=== PATIENT | male | born 1960 | race Caucasian/White ===

== ENCOUNTER 2021-02-14 21:20 | Emergency (ER) | payer OTHER ==
[2021-02-14 22:06] LABS: Basophils % 0.6 % (0-1.3); Hematocrit 43.7 % (39.6-49.0); Lymphocytes % 9.4 % (15.3-44.8); MPV 8.5 fL (7.6-11.3); RBC Red Blood Cell Count 4.58 M/uL (4.33-5.43)
[2021-02-14] MEDS ORDERED: METHYLPREDNISOLONE 125 MG INJ ONE (22:07)
[2021-02-14 22:08] LABS: Protime INR 1.04
--- NOTE | 2021-02-14 22:08 | RAD REPORT ---
EXAM DESCRIPTION: RAD - Chest Single View - 02/14/2021 9:57 pm CLINICAL HISTORY: SOB COMPARISON: <Comparisons> FINDINGS: Lines: None. Lungs: No evidence of edema or pneumonia. Pleural: No significant pleural effusions or pneumothorax. Cardiac: The heart size is within normal limits. Bones: No acute fractures. Other: IMPRESSION: No acute cardiopulmonary disease.
[2021-02-14 22:24] LABS: ALT/SGPT 32 U/L (12-78); AST/SGOT 33 U/L (15-37); Albumin 4.3 g/dL (3.4-5.0); Alkaline Phosphatase 67 U/L (45-117); BUN Blood Urea Nitrogen 18 mg/dL (7-18); Bicarbonate 26 mmol/L (21-32); Bilirubin Direct < 0.1 mg/dL (0-0.2); Bilirubin Total 0.4 mg/dL (0.2-1.0); Glucose Level 101 mg/dL (74-106); Magnesium 2.2 mg/dL (1.8-2.4); NT PRO-BNP 117 pg/mL (<125); Potassium 3.9 mmol/L (3.5-5.1); Protein, Total 7.9 g/dL (6.4-8.2); Sodium Level 140 mmol/L (136-145); Troponin (Emerg Dept Use Only) < 0.02 ng/mL (0.0-0.045)
[2021-02-14] MEDS ORDERED: IPRATROPIUM BROM 0.5MG/2.5ML ONE (22:24)
[2021-02-14] MEDS ORDERED: ALBUTEROL 2.5 MG/3 ML NEB SOL ONE (22:34)
--- NOTE | 2021-02-15 00:39 | ER ---
Nurse's Notes [facility] Name: Adalberto Celestin Jr Age: 60 yrs Sex: Male : 1960 Arrival Date: 02/14/2021 Time: 21:24 Bed 18 [facility] MD: Diagnosis: COPD/ Chronic obstructive pulmonary disease with (acute) exacerbation Presentation: 02/14 21:27 Chief complaint: Patient states: shortness of breath that started today, reports cough, em denies fever or chest pain. Coronavirus screen: Vaccine status: Patient reports receiving the 2nd dose of the covid vaccine. Ebola Screen: Patient negative for fever greater than or equal to 101.5 degrees Fahrenheit, and additional compatible Ebola Virus Disease symptoms Patient denies exposure to infectious person. Patient denies travel to an Ebola-affected area in the 21 days before illness onset. No symptoms or risks identified at this time. Initial Sepsis Screen: Does the patient meet any 2 criteria? No. Patient's initial sepsis screen is negative. Initial Sepsis Screen: Does the patient have a suspected source of infection? No. Patient's initial sepsis screen is negative. Risk Assessment: Do you want to hurt yourself or someone else? Patient reports no desire to harm self or others. Onset of symptoms was February 14, 2021. 21:27 Method Of Arrival: Ambulatory em 21:27 Acuity: JAYLYN 2 em Triage Assessment: 02/15 00:59 Respiratory: the patient reports symptoms have resolved. 4 Historical: - Allergies: 02/14 21:29 No Known Allergies; em - PMHx: 21:29 COPD; em - PSHx: 21:29 None; em - Immunization history:: Adult Immunizations up to date. - Social history:: Smoking status: Patient denies any tobacco usage or history of. Screenin/17 00:54 Abuse screen: Denies threats or abuse. Nutritional screening: No deficits noted. kc4 Tuberculosis screening: No symptoms or risk factors identified. Never had TB. Possible symptoms: None Risk factors: None. Fall Risk None identified. No fall in past 12 months (0 pts). No secondary diagnosis (0 pts). IV access (20 points). Ambulatory Aid- None/Bed Rest/Nurse Assist (0 pts). Gait- Normal/Bed Rest/Wheelchair (0 pts) Mental Status- Oriented to own ability (0 pts). Total Carmen Fall Scale indicates No Risk (0-24 pts). Assessment: 02/14 22:22 General: Appears distressed, uncomfortable, Behavior is cooperative, appropriate for kc4 age, anxious, restless, Reports Denies fever, fatigue, chills. Pain: Complains of pain in back and chest Pain does not radiate. Pain currently is 4 out of 10 on a pain scale. Quality of pain is described as aching, Pain began 2 hours ago. Alleviated by medications, Aggravated by increased activity, Also complains of shortness of breath, Current management is with duoneb is partially effective. Neuro: No deficits noted. Cardiovascular: No deficits noted. Rhythm is sinus rhythm. Respiratory: Reports shortness of breath at rest on exertion Airway is patent Trachea midline Respiratory effort is with nasal flaring, pursed lip, using tripod position, Respiratory pattern is tachypnea clear to diminished bilateral. 22:28 GI: No deficits noted. : No deficits noted. EENT: No deficits noted. Derm: No kc4 deficits noted. Musculoskeletal: No deficits noted. Vital Signs: 21:27 BP 167 / 85; Pulse 85; Resp 36; Temp 98.2; Pulse Ox 99% on R/A; Weight 86.18 kg; Height em 6 ft. 4 in. (193.04 cm); 22:06 BP 148 / 76 Sitting; Pulse 80; Resp 26; Temp 98.9; Pulse Ox 98% on R/A; Pain 0/10; kc4 22:54 BP 155 / 82; Pulse 88; Resp 20; Temp 98.8; Pulse Ox 96% on R/A; Pain 0/10; kc4 02/15 00:58 BP 138 / 75; Pulse 80; Resp 22; Temp 98.7; Pulse Ox 97% on R/A; Pain 0/10; kc4 02/14 21:27 Body Mass Index 23.13 (86.18 kg, 193.04 cm) em ED Course: 02/14 21:24 Patient arrived in ED. 21:29 Triage completed. em 21:29 Arm band placed on. em 21:32 Asad Gill PA is PHCP. cp 21:32 Byron Euceda MD is Attending Physician. cp 21:40 Maci Marshall is Primary Nurse. kc4 21:56 XRAY Chest (1 view) In Process Unspecified. EDMS 22:05 CBC with Diff Sent. kc4 22:05 LFT's Sent. kc4 22:05 Magnesium Sent. kc4 22:05 NT PRO-BNP Sent. kc4 22:05 PT-INR Sent. kc4 22:05 Basic Metabolic Panel Sent. kc4 22:05 Troponin (emerg Dept Use Only) Sent. kc4 22:56 Patient has correct armband on for positive identification. Placed in gown. Bed in low kc4 position. Call light in reach. Side rails up X 1. 02/15 00:58 No provider procedures requiring assistance completed. IV discontinued, intact, kc4 bleeding controlled, No redness/swelling at site. Pressure dressing applied. Administered Medications: 02/14 21:55 Drug: SOLU-Medrol (methylPrednisoLONE) 125 mg Route: IVP; Site: right antecubital; kc4 22:52 Follow up: Response: No adverse reaction kc4 22:04 Drug: Albuterol - atroVENT (ipratropium) (3:1) (2.5 mg - 0.5 mg) 3 ml Route: Nebulizer; kc4 22:52 Follow up: Response: No adverse reaction kc4 Outcome: 02/15 00:39 Discharge ordered by . cp 00:59 Discharged to home ambulatory. kc4 00:59 Condition: improved 00:59 Discharge instructions given to patient. 01:00 Patient left the ED. kc4 Signatures: Dispatcher [employer] Adiel Keating RN RN Asad Mcgee PA PA cp Marsh, Wendy wm Chuman, Kourtney kc4 Corrections: (The following items were deleted from the chart) 02/14 21:55 21:54 SOLU-Medrol (methylPrednisoLONE) 125 mg IVP in right subclavian kc4 kc4
--- NOTE | 2021-02-15 00:40 | EDPHYS ---
Physician Documentation [facility] Name: Adalberto Celestin Jr Age: 60 yrs Sex: Male : 1960 Arrival Date: 02/14/2021 Time: 21:24 Bed 18 Private MD: ED Physician Byron Euceda HPI: 02/14 21:45 This 60 yrs old Male presents to ER via Ambulatory with complaints of cp Breathing Difficulty - O2-91%. 21:45 The patient has shortness of breath at rest. Onset: The symptoms/episode began/occurred cp today. Duration: The symptoms are continuous, and are steadily getting worse. 21:45 Associated signs and symptoms: Pertinent negatives: chest pain, productive cough, cp fever. Severity of symptoms: in the emergency department the symptoms are unchanged despite home interventions. Historical: - Allergies: 21:29 No Known Allergies; em - PMHx: 21:29 COPD; em - PSHx: 21:29 None; em - Immunization history:: Adult Immunizations up to date. - Social history:: Smoking status: Patient denies any tobacco usage or history of. ROS: 21:55 Constitutional: Negative for body aches, chills, fever, poor PO intake. cp 21:55 Eyes: Negative for injury, pain, redness, and discharge. cp 21:55 ENT: Negative for ear pain, sore throat, difficulty swallowing, difficulty handling secretions. 21:55 Cardiovascular: Negative for chest pain, edema, palpitations. 21:55 Respiratory: Positive for cough, with no reported sputum, shortness of breath, at rest. 21:55 Abdomen/GI: Negative for abdominal pain, nausea, vomiting, and diarrhea. 21:55 Back: Negative for radiated pain. 21:55 Neuro: Negative for altered mental status, headache, syncope, weakness. 21:55 All other systems are negative. Exam: 22:00 Constitutional: The patient appears in no acute distress, alert, awake, cp non-diaphoretic, non-toxic, well developed, well nourished, in obvious distress, mildly distressed. 22:00 Head/Face: Normocephalic, atraumatic. cp 22:00 Eyes: Periorbital structures: appear normal, Conjunctiva: normal, no exudate, no injection, Sclera: no appreciated abnormality, Lids and lashes: appear normal, bilaterally. 22:00 ENT: External ear(s): are unremarkable, Nose: is normal, Mouth: Lips: moist, Oral mucosa: moist, Posterior pharynx: Airway: no evidence of obstruction, patent. 22:00 Neck: ROM/movement: is normal, is supple, without pain, no range of motions limitations, no meningismus. 22:00 Chest/axilla: Inspection: normal, Palpation: is normal, no crepitus, no tenderness. 22:00 Cardiovascular: Rate: normal, Rhythm: regular, Edema: is not appreciated, JVD: is not appreciated. 22:00 Respiratory: mild respiratory distress is noted, Respirations: labored breathing, that is moderate, shallow respirations, that is moderate, Breath sounds: decreased breath sounds, that are moderate, throughout, stridor, is not appreciated, wheezing: expiratory that is mild, is heard diffusely. 22:00 Abdomen/GI: Exam negative for discomfort, distension, guarding, Inspection: abdomen appears normal. 22:00 Back: pain, is absent, ROM is normal. 22:00 Skin: no rash present. 22:00 Neuro: Orientation: to person, place \T\ time. Mentation: is normal, Motor: moves all fours, strength is normal, Sensation: is normal. Vital Signs: 21:27 BP 167 / 85; Pulse 85; Resp 36; Temp 98.2; Pulse Ox 99% on R/A; Weight 86.18 kg; Height em 6 ft. 4 in. (193.04 cm); 22:06 BP 148 / 76 Sitting; Pulse 80; Resp 26; Temp 98.9; Pulse Ox 98% on R/A; Pain 0/10; kc4 22:54 BP 155 / 82; Pulse 88; Resp 20; Temp 98.8; Pulse Ox 96% on R/A; Pain 0/10; kc4 02/15 00:58 BP 138 / 75; Pulse 80; Resp 22; Temp 98.7; Pulse Ox 97% on R/A; Pain 0/10; kc4 02/14 21:27 Body Mass Index 23.13 (86.18 kg, 193.04 cm) em MDM: 02/14 21:36 Patient medically screened. cp 22:00 Differential diagnosis: Bronchitis CHF exacerbation, Chronic Obstructive Pulmonary cp Disease pneumonia, Pneumothorax pulmonary edema, Pulmonary Embolism Sepsis Unstable Angina. 02/15 00:35 Data reviewed: vital signs, nurses notes, lab test result(s), radiologic studies, plain cp films. 00:35 Data interpreted: Pulse oximetry: on room air is 97 %. Interpretation: normal. Test cp interpretation: by ED physician or midlevel provider: plain radiologic studies. Counseling: I had a detailed discussion with the patient and/or guardian regarding: the historical points, exam findings, and any diagnostic results supporting the discharge/admit diagnosis, lab results, radiology results, the need for outpatient follow up, a family practitioner, to return to the emergency department if symptoms worsen or persist or if there are any questions or concerns that arise at home. Response to treatment: the patient's symptoms have markedly improved after treatment, and as a result, I will discharge patient. 02/14 21:36 Order name: Basic Metabolic Panel; Complete Time: 22:57 cp 02/14 21:36 Order name: CBC with Diff; Complete Time: 22:57 cp 02/14 21:36 Order name: LFT's; Complete Time: 22:57 cp 02/14 21:36 Order name: Magnesium; Complete Time: 22:57 cp 02/14 21:36 Order name: NT PRO-BNP; Complete Time: 22:57 cp 02/14 21:36 Order name: PT-INR; Complete Time: 22:57 cp 02/14 21:36 Order name: Troponin (emerg Dept Use Only); Complete Time: 22:57 cp 02/14 21:36 Order name: XRAY Chest (1 view); Complete Time: 22:57 cp 02/14 21:36 Order name: Cardiac monitoring; Complete Time: 21:44 cp 02/14 22:52 Order name: SARS-COV-2 RT PCR; Complete Time: 22:57 EDMS 02/14 21:36 Order name: EKG - Nurse/Tech; Complete Time: 22:05 cp 02/14 21:36 Order name: IV Saline Lock; Complete Time: 22:05 cp 02/14 21:36 Order name: Labs collected and sent; Complete Time: 22:05 cp 02/14 21:36 Order name: O2 Per Protocol; Complete Time: 22:05 cp 02/14 21:36 Order name: O2 Sat Monitoring; Complete Time: 21:45 cp Administered Medications: 02/14 21:55 Drug: SOLU-Medrol (methylPrednisoLONE) 125 mg Route: IVP; Site: right antecubital; kc4 22:52 Follow up: Response: No adverse reaction kc4 22:04 Drug: Albuterol - atroVENT (ipratropium) (3:1) (2.5 mg - 0.5 mg) 3 ml Route: Nebulizer; kc4 22:52 Follow up: Response: No adverse reaction kc4 Disposition: 02/15 04:47 Co-signature as Attending Physician, Byron Euceda MD. pkgiuliana Disposition Summary: 02/15/21 00:39 Discharge Ordered Location: Home cp Problem: an acute exacerbation cp Symptoms: have improved cp Condition: Stable cp Diagnosis - COPD/ Chronic obstructive pulmonary disease with (acute) exacerbation cp Followup: cp - With: Private Physician - When: 2 - 3 days - Reason: Recheck today's complaints Discharge Instructions: - Discharge Summary Sheet cp - Chronic Obstructive Pulmonary Disease Exacerbation cp Forms: - Medication Reconciliation Form cp - Thank You Letter cp - Antibiotic Education cp - Prescription Opioid Use cp Prescriptions: - Prednisone 20 mg Oral Tablet - take 2 tablets by ORAL route once daily for 5 days; 10 tablet; Refills: 0, cp Product Selection Permitted Signatures: Dispatcher [employer] Byron Flores MD MD pkl Adiel Francois, RN RN em Asad Gill PA PA cp Maci Marshall kc4 Corrections: (The following items were deleted from the chart) 02/14 22:02 21:38 CORONAVIRUS+BRZ ordered. EDMS EDMS
[2021-02-15 02:32] VITALS: BP 138/75; TEMP 98.7; O2SAT 97
== END 2021-02-15 01:00 | disposition home or self-care (01) ==
LOC: ER 21:20
DX: J44.1 Chronic obstructive pulmonary disease with (acute) exacerbation (principal); Z20.822 Contact with and (suspected) exposure to COVID-19
CPT/HCPCS: 85025; 80048; 36415; 83735; 85610; 80076; 84484; 83880; 71045; 96374; 99285; U0003; J2930